=== PATIENT | female | born 2000 | race Caucasian/White ===

== ENCOUNTER 2019-01-30 16:11 | Emergency (ER) | payer MEDICAID ==
[~2019-01-30] VITALS: Ht 162.6 cm; Wt 90.7 kg
[2019-01-30 16:11] VITALS: BP_SYST 141
[2019-01-30 17:10] VITALS: BP_SYST 141
== END 2019-01-30 17:10 | disposition home or self-care (01) ==
LOC: SED 16:11
DX: J06.9 Acute upper respiratory infection, unspecified (principal); J45.909 Unspecified asthma, uncomplicated; Z90.89 Acquired absence of other organs
CPT/HCPCS: 99283

== ENCOUNTER 2019-02-05 09:12 | Emergency (ER) | payer MEDICAID ==
[~2019-02-05] VITALS: Ht 160 cm; Wt 98.0 kg
[2019-02-05 09:12] VITALS: BP_SYST 118
--- NOTE | 2019-02-05 11:07 | NUR ---
BROUGHT BACK TO BED #7 AND REPORT GIVEN TO HUMBERTO
--- NOTE | 2019-02-05 11:19 | NUR ---
ER Dr. Cummings at bedside examining patient.
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
[2019-02-05] MEDS ORDERED: IBUPROFEN 800 MG TABLET PO ONE (11:30)
[2019-02-05 12:35] VITALS: BP_SYST 118
--- NOTE | 2019-02-05 12:35 | NUR ---
Patient given written and verbal discharge instructions and verbalizes understanding. ER MD discussed with patient the results and treatment provided. Patient in stable condition. ID arm band removed. Rx of norco and motrin given. Patient educated on pain management and to follow up with PMD. Pain Scale 1/10. Opportunity for questions provided and answered. Medication side effect fact sheet provided.
== END 2019-02-05 12:35 | disposition home or self-care (01) ==
LOC: SED 09:12
DX: S46.911A Strain of unspecified muscle, fascia and tendon at shoulder and upper arm level, right arm, initial encounter (principal); J45.909 Unspecified asthma, uncomplicated; Z90.49 Acquired absence of other specified parts of digestive tract; V43.52XA Car driver injured in collision with other type car in traffic accident, initial encounter; Y93.89 Activity, other specified; Y92.410 Unspecified street and highway as the place of occurrence of the external cause; Y99.8 Other external cause status
CPT/HCPCS: 99283